=== PATIENT | female | born 1985 | race Caucasian/White ===

== ENCOUNTER 2017-07-16 21:33 | Emergency (ER) | payer OTHER ==
--- NOTE | 2017-07-17 00:43 | EDM.PDOC ---
ED HPI GENERAL MEDICAL PROBLEM - General Chief Complaint: Respiratory Problem Stated Complaint: ISSUES RELATED TO ASTHMA Time Seen by Provider: 07/16/17 22:49 Source of Information: Reports: Patient History Limitations: Reports: No Limitations - History of Present Illness INITIAL COMMENTS - FREE TEXT/NARRATIVE: The patient reports 3 days of a cough productive of green sputum, wheezing, a headache whenever she coughs, nasal congestion with sinus pressure, sneezing, a sore throat, and bilateral earaches. She has not had a fever, although she has felt alternatingly hot and cold. She states that she was presumptively diagnosed with asthma at 9 or 10 years of age, and has albuterol by nebulizer, which she has been taking about every 4 hours initially, then twice a day, then only as needed, including only once today. She has not taken any other home remedies or [id number] medications. The patient's PCP is in [place]. Face Pain Score (Numeric/FACES): 5 - Related Data Allergies Allergy/AdvReac Type Severity Reaction Status Date / Time amoxicillin Allergy Rash Verified 07/16/17 21:47 cefdinir [From Omnicef] Allergy Cannot Verified 07/16/17 21:47 Remember medroxyprogesterone Allergy Hives Verified 07/16/17 21:47 [From Depo-Provera] silver Allergy Blisters Verified 07/16/17 21:47 [From Tegaderm AG Mesh] Home Meds: Home Meds ARIPiprazole [Abilify] 5 mg PO DAILY 07/16/17 [History] Albuterol Sulfate 2.5 mg INH ASDIRECTED 07/16/17 [History] Past Medical History Respiratory History: Reports: Asthma (Suspect, not confirmed) Neurological History: 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) Psychiatric History: Reports: Anxiety, PTSD - Infectious Disease History Infectious Disease History: Reports: Other (See Below) (Lyme Dz 2012) - Past Surgical History HEENT Surgical History: Reports: Myringotomy w Tube(s) (bilateral), Naso-Sinus Surgery GI Surgical History: Reports: Cholecystectomy Female Surgical History: Reports: Endometrial Ablation, Hysterectomy, Tubal Ligation Musculoskeletal Surgical History: Reports: Other (See Below) (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 ED EXAM, GENERAL - Physical Exam Exam: See Below Exam Limited By: No Limitations General Appearance: Alert, WD/WN, No Apparent Distress Eye Exam: Bilateral Eye: Normal Inspection Ears: Normal External Exam, Normal Canal, Hearing Grossly Normal, Other (Tooth scars seen on each of the tympanic membranes. The right tympanic membrane appears to be bulging with clear fluid) Nose: Normal Inspection, No Blood, Other (Bilateral nasal mucosa edema) Throat/Mouth: Normal Inspection, Normal Lips, Normal Teeth, Normal Gums, Normal Oropharynx, Normal Voice, No Airway Compromise Head: Atraumatic, Normocephalic Neck: Normal Inspection, Supple, Non-Tender, Full Range of Motion. No: Lymphadenopathy (L), Lymphadenopathy (R) Respiratory/Chest: No Respiratory Distress, No Accessory Muscle Use, Wheezing ( Few, scattered). No: Crackles, Rhonchi, Prolonged Expiration Cardiovascular: Normal Peripheral Pulses, Regular Rate, Rhythm, No Edema, No Gallop, No JVD, No Murmur, No Rub Peripheral Pulses: 4+: Radial (L), Radial (R) GI/Abdominal: Normal Bowel Sounds, Soft, Non-Tender, No Organomegaly, No Distention, No Abnormal Bruit, No Mass (Female) Exam: Deferred Rectal (Female) Exam: Deferred Back Exam: Normal Inspection, Full Range of Motion, NT Extremities: Normal Inspection, Normal Range of Motion, No Pedal Edema, Normal Capillary Refill Neurological: Alert, Oriented, Normal Cognition, No Motor/Sensory Deficits Psychiatric: Normal Affect Skin Exam: Warm, Dry, Intact, Normal Color, No Rash Course - Vital Signs Last Recorded V/S: Last Vital Signs Temp 36.7 C 07/16/17 21:43 Pulse 88 07/16/17 21:43 Resp 20 07/16/17 21:43 BP 122/78 07/16/17 21:43 Pulse Ox 99 07/16/17 21:43 - Re-Assessments/Exams Free Text/Narrative Re-Assessment/Exam: 07/17/17 00:30 During my evaluation of the patient, a trauma code was called and I had to leave the patient. By that time, I had already collected a strep swab, and I had the Respiratory Therapist give the patient a peak flow meter and instruct her on how to use it properly. I was just notified by Precious AYON that the patient had to leave, not because of our care, but because her son was misbehaving. She was notified that her rapid strep is negative, however, I did not have the opportunity to explained the patient that her symptoms do not appear to be related to asthma, rather, it appears that the patient has an viral URI with cough, and I did not have the opportunity to recommend treatment. Departure - Departure Time of Disposition: 00:25 Disposition: Home, Self-Care 01 Condition: Good Clinical Impression: Viral URI with cough - Discharge Information
== END 2017-07-17 00:30 | disposition home or self-care (01) ==
LOC: JD.ED 21:33
DX: J06.9 Acute upper respiratory infection, unspecified (principal); F17.210 Nicotine dependence, cigarettes, uncomplicated; Z88.1 Allergy status to other antibiotic agents; Z88.8 Allergy status to other drugs, medicaments and biological substances; Z91.048 Other nonmedicinal substance allergy status; Z79.899 Other long term (current) drug therapy
CPT/HCPCS: 87077; 87081; 87430; 99282; 99285-25